=== PATIENT | male | born 1960 | race Caucasian/White ===

== ENCOUNTER 2019-12-10 23:25 | Emergency (ER) | payer OTHER, SELFPAY ==
--- NOTE | ~2019-12-10 | CT_ITS ---
EXAMINATION: CT abdomen pelvis w con DATE: 12/11/2019 00:37 INDICATION: Vomiting. Diarrhea. TECHNIQUE: Computed tomography (CT) of the abdomen and pelvis was performed with 100 mL Omnipaque 350 intravenous contrast. Automated exposure control and iterative reconstruction technique were employe d. The dose-length product was 555.78 mGy-cm. COMPARISON: CT abdomen and pelvis 07/31/2013 FINDINGS: The visualized portions of the lung bases demonstrate mild atelectasis. No pleural effusion . The heart size is normal. No pericardial effusion. There is a small sliding hiatal hernia. There is a 6 mm cyst in the liver. There are 8 mm and 12 mm low-attenuation lesions in the spleen inferiorly with interval decrease in size, likely granulomatous disease. The pancreas and adrenal glands are nor mal. There are cysts in the kidneys measuring up to 6 mm on the left. The prostate is moderately enla rged. There are no dilated loops of bowel. There are changes of appendectomy. There are no pathologic ally enlarged lymph nodes. There is no free intraperitoneal fluid. There are small bilateral inguinal hernias containing fat. There is mild lumbar spondylosis. IMPRESSION: 1. Small sliding hiatal hernia. 2. Small bilateral inguinal hernias containing fat. Reviewed, dictated and finalized at location A.
--- NOTE | ~2019-12-10 | CT_ITS ---
EXAMINATION: CT brain wo con DATE: 12/11/2019 00:37 INDICATION: Vertigo. TECHNIQUE: Computed tomography (CT) of the head was performed without intravenous contrast. The mA wa s adjusted according to patient size. Iterative reconstruction technique was employed. The dose-lengt h product was 605.33 mGy-cm. COMPARISON: None FINDINGS: There is no intracranial hemorrhage, acute infarction, or abnormal intracranial mass lesion . The ventricles are normal in size. Cavum septum pellucidum and vergae are noted. The paranasal sinu ses are clear. The orbits are normal. The mastoid air cells are normal. IMPRESSION: 1. Normal brain. Reviewed, dictated and finalized at location A. IMPRESSION: 1. Normal brain.
[2019-12-10 23:26] VITALS: BP 143/94; PULSE 56; RESP 16; TEMP 36.9; O2SAT 97
[2019-12-10 23:43] LABS: Basophils Absolute Auto 0.1 K/mm3 (0.0-0.1); Basophils Percent Auto 0.3 % (0.2-1.2); Hematocrit 48.7 % (42.0-52.0); Immature Granulocyte Absolute 0.08 K/mm3 (0.00-0.031); Immature Granulocyte Percent A 0.4 % (0-0.5); Lymphocytes Absolute Auto 1.22 K/mm3 (0.9-3.2); Lymphocytes Percent Auto 6.2 % (18.3-44.2); Mean Corpuscular HGB Conc 34.9 g/dl (32-36); Mean Corpuscular Hemoglobin 31.8 pg (26-34); Mean Corpuscular Volume 91.2 fl (80-100); Mean Platelet Volume 11.1 fl (7.4-10.4); Monocytes Absolute Auto 0.9 K/mm3 (0.1-0.6); Monocytes Percent Auto 4.8 % (2.6-8.5); Neutrophils Absolute Auto 17.5 K/mm3 (1.3-6.7); Neutrophils Percent Auto 88.3 % (45.5-73.1); Platelet Count Result 155 k/mm3 (150-375); Red Blood Count 5.34 M/mm3 (4.6-6.20); Red Cell Distribution Width 12.9 % (11.5-14.5); White Blood Count 19.8 K/mm3 (4.5-10.0)
--- NOTE | 2019-12-10 23:46 | ED.NAVMDI ---
HPI - Nausea/Vomiting/Diarrhea General Chief complaint: Nausea/Vomiting/Diarrhea Stated complaint: n/v/d Time Seen by Provider: 12/10/19 23:29 History of Present Illness HPI Narrative: Patient presents to the ED via EMS accompanied by his . He is here primarily for continual vomiting for 6 hours, and diarrhea today. Last night he had the feeling of nausea with any motion. He has had a history of migraine. His said he looked menjivar at home before she called the ambulance. He has a history of appendectomy and cholecystectomy. 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 He does not smoke cigarettes, does not drink alcohol, he does smoke marijuana. MD elicited complaint: nausea, vomiting, diarrhea and abdominal pain Pertinent past history: abdominal surgery Onset (ago): hour(s) Description of vomiting: food contents Associated nausea: Yes Associated abdominal pain: Yes Location of pain: diffuse Pain consistency: constant Severity: mild Exacerbating factors: none Relieving factors: none Related Data Home Medications Medication Instructions Recorded Confirmed omeprazole 40 mg PO DAILY 05/02/19 05/02/19 sumatriptan succinate 6 mg SUBCUT ONCE 12/10/19 Allergies Allergy/AdvReac Type Severity Reaction Status Date / Time morphine Allergy Intermediate RASH Verified 09/08/19 09:25 Penicillins Allergy Unknown Hives Verified 12/10/19 23:35 Review of Systems Review of Systems: Narrative: CONSTITUTIONAL: Denies fever, chills, or sweats. EYES: Denies visual changes, redness, or discharge. ENT: Denies rhinorrhea, congestion, sore throat, or otalgia. CARDIOVASCULAR: Denies chest pain, palpitations, or edema. RESPIRATORY: Denies cough or dyspnea. GASTROINTESTINAL: He has abdominal pain, nausea, vomiting, and diarrhea. GENITOURINARY: Denies dysuria or hematuria. SKIN: Denies rash or itching. MUSCULOSKELETAL: Denies back pain, joint pain, or myalgia. NEUROLOGIC: Denies headache, numbness, or weakness. . All systems reviewed & are unremarkable except as noted in HPI and below PMFSH Past Medical History Medical History History of migraine Surgical History Surgical History History of appendectomy History of cholecystectomy Family History Family History Father Hypertension Cerebrovascular accident Grandparent Cerebrovascular accident Family history of lung cancer No family history of cerebrovascular accident (CVA) Other Diabetes mellitus Social History Social History (Updated 12/10/19 @ 23:50 by Natalie Rosales MD) Smoking status: Former smoker Alcohol intake: never Substance use: current Substance use type: marijuana Gender identity (if verbalized by the patient): Male Exam Narrative: Exam Narrative: GENERAL: Sickly looking elderly man with a frown on his face. Poor eye contact. Speaks few words HEAD: Normocephalic, atraumatic. EYES: PERRLA and EOMI. ENT: Nares clear, no rhinorrhea or epistaxis. Mucous membranes moist. NECK: Supple. CHEST: Clear to auscultation. No respiratory distress. HEART: Regular rate and rhythm. No murmur heard. Normal peripheral pulses. ABDOMEN: Soft, nontender, nondistended, normal active bowel sounds. EXTREMITIES: Normal range of motion. No edema. SKIN: Warm, dry, no rash. NEURO: No focal deficits. Alert and oriented x3. . Course Reevaluation(s) Reevaluation #1: Went in to tell the patient and his that the CAT scans came out fine. He is feeling better and having some ice chips. We will give him another liter of fluid and see how much better he feels. Date: 12/11/19 Time: 01:45 Reevaluation #2: Second liter of fluid is done. The patient looks so much better. Now he is smiling. They are ready to go home. Date: 12/11/19 Time: 03:01 Vital Signs Vital signs: Vital Signs Temperature 98.4 F
[2019-12-10 23:52] LABS: Alanine Aminotransferase 17 U/L (4-50); Albumin Level 4.7 g/dL (3.5-5.1); Alkaline Phosphatase 97 U/L (38-126); Aspartate Amino Transferase 25 U/L (17-59); Bilirubin,Total 0.8 mg/dL (0.2-1.3); Blood Urea Nitrogen 21 mg/dL (9-20); Calcium 9.6 mg/dL (8.4-10.2); Carbon Dioxide 22 mmol/L (22-30); Chloride 100 mmol/L (98-107); Estimated CRCL calculation 64 ml/min; Estimated Glomerular Filt Rate > 60; Glucose 160 mg/dL (75-110); Lipase 53 U/L (23-300); Potassium 4.6 mmol/L (3.4-5.0); Sodium 134 mmol/L (137-145)
[2019-12-10] MEDS: METOCLOPRAMIDE HCL INJ 10 MG/2 ML VIAL IV PUSH (23:53)
[2019-12-10] MEDS: SODIUM CHLORIDE 0.9% IV 1,000 ML 999 ML IV CONT ×2 (23:57)
[2019-12-11] VITALS: BP 152/104; PULSE 64; RESP 12; O2SAT 100
[2019-12-11 01:00] VITALS: BP 134/84; PULSE 98; RESP 16; O2SAT 99
[2019-12-11 01:30] VITALS: BP 154/86; PULSE 81; RESP 16; O2SAT 100
[2019-12-11 01:41] LABS: Add Urine Microscopic? YES; Appearance Urine Clear (Clear); Bilirubin Urine Negative (Negative); Blood Urine Negative (Negative); Glucose Urine UA Negative (Negative); Ketones Urine 1+ mg/dL (Negative); Leukocyte Esterase Ur Negative LEU/UL (Negative); Mucus Urine Rare /lpf; Nitrate Urine Negative (Negative); Protein Urine Negative (Negative); RBC Urine 0-2 /hpf (0-2); Urobilinogen Urine Negative mg/dL (<2.0); WBC Urine 0-3 /hpf
[2019-12-11 01:49] LABS: Color Urine Light Yellow (Yellow); Specific Grav Ur 1.048 (1.001-1.035)
[2019-12-11] MEDS: SODIUM CHLORIDE 0.9% IV 1,000 ML 999 ML IV CONT (01:53)
[2019-12-11 02:00] VITALS: BP 151/84; PULSE 60; RESP 14; O2SAT 100
[2019-12-11 03:03] VITALS: BP 130/68; PULSE 68; RESP 16; O2SAT 100
== END 2019-12-11 03:27 | disposition home or self-care (01) ==
PROVIDERS: Emergency Provider Emergency Medicine; PCP Family Medicine
DX: K52.9 Noninfective gastroenteritis and colitis, unspecified (principal); R42 Dizziness and giddiness; D72.829 Elevated white blood cell count, unspecified; Z87.891 Personal history of nicotine dependence
CPT/HCPCS: 36415; 70450; 74177; 80053; 81001; 83690; 85025; 96361; 96374; 99284; J2765; J7030; Q9967

== ENCOUNTER 2020-02-02 00:34 | Outpatient (CLI) | payer OTHER, SELFPAY ==
[2020-02-03 13:40] LABS: SARS-CoV-2 RNA PCR Negative
== END 2020-02-02 00:35 | disposition home or self-care (01) ==
LOC: ANHCOVIDDT 00:34
PROVIDERS: PCP Family Medicine; Visit Provider Internal Medicine Gastroenterology
DX: Z01.812 Encounter for preprocedural laboratory examination (principal); Z20.828 Contact with and (suspected) exposure to other viral communicable diseases
CPT/HCPCS: 87635; C9803; U0003

== ENCOUNTER 2020-02-05 01:09 | Day surgery (SDC) | payer OTHER, SELFPAY ==
[2020-01-31 09:54] VITALS: BMI 27.1
[2020-02-05 06:31] VITALS: BMI 25.5
[2020-02-05 06:34] VITALS: BP 109/86; PULSE 108; RESP 24; TEMP 36.3; O2SAT 100
[2020-02-05] MEDS: LACTATED RINGERS 1,000 ML 150 ML IV CONT (06:42)
--- NOTE | 2020-02-05 07:13 | WPDANESEPPF ---
Anes - Initial Pre Proc Eval Procedure: Operation Date: 02/05/20 07:30 Proposed Procedures p Esophagogastroduodenoscopy - Hung Bowens MD Date/Time: 02/05/20 07:13 Surgeon: Hung Bowens MD Pre Op Diagnosis: reflux, esophageal obstruction Patient Data Age: 59 Gender: M Height: 6 ft Weight: 85.4 kg Last Vital Signs Temp 97.4 F L 02/05/20 06:34 Pulse 108 H 02/05/20 06:34 Resp 24 H 02/05/20 06:34 BP 109/86 02/05/20 06:34 Pulse Ox 100 02/05/20 06:34 Allergies Allergy/AdvReac Type Severity Reaction Status Date / Time morphine Allergy Intermediate RASH Verified 02/05/20 06:29 Penicillins Allergy Unknown Hives Verified 02/05/20 06:29 Home Medications Medication Instructions Recorded Confirmed Type propranolol 60 mg capsule,24 60 mg PO DAILY #90 cap 09/18/19 01/31/20 Rx hr,extended release clorazepate dipotassium 7.5 mg 7.5 mg PO QID PRN #120 tablet 11/15/19 01/31/20 Rx tablet sumatriptan succinate 6 mg SUBCUT ONCE PRN 12/10/19 01/31/20 History omeprazole 40 mg capsule,delayed 40 mg PO DAILY #90 cap 12/21/19 01/31/20 Rx release terbinafine HCl 250 mg tablet 250 mg PO DAILY #84 tablet 12/25/19 01/31/20 Rx rosuvastatin 20 mg tablet 20 mg PO DAILY #30 tablet 12/29/19 01/31/20 Rx duloxetine 60 mg capsule,delayed 60 mg PO DAILY #30 cap 01/17/20 01/31/20 Rx release trazodone 50 mg PO HS 01/31/20 01/31/20 History Patient hx anesthesia problems: none Family hx anesthesia problems: none PMFSH Social History Social History Smoking packs per day: 1 Smoking cigarettes per day: 20.0 Years smoked: 20 Smoking pack-years: 20.00 Smoking status: Former smoker Tobacco type: cigarettes Alcohol intake: never Substance use: never Substance use type: does not use Gender identity (if verbalized by the patient): Male Spiritual care concerns: No Anes - Eval Final PreProcedure Day of Procedure 02/05/20 07:13 Patient weight: normal Heart: regular rate and rhythm Lungs: clear to auscultation Airway: Mallampati scale class II Neurological: alert and oriented Last oral intake: >/= 8 hours ASA classification: III Emergent: no Anesthetic plan: proceed Anesthesia type and monitoring: general GIVS and standard monitoring Informed Consent: The patient's anesthetic plan and its attendant risks and benefits were discussed with the patient/family/POA. Questions were solicited and answers provided to the satisfaction of the patient/family/POA.
--- NOTE | 2020-02-05 07:15 | PM.HPGS ---
History of Present Illness History of Present Illness Consent: Risks, benefits, and alternatives have been discussed and questions answered. Patient agrees to proceed with procedure. Chief complaint: reflux, esophageal obstruction Narrative: Jayme Sterling Jr. is a 59 year old W male Referred for EGD for evaluation of sub xiphoid and epigastric abdominal pain associated with odynophagia and abdominal pressure. Patient has been on Prilosec 40 mg daily for least 5 years for chronic gastroesophageal reflux disease. He has never had an EGD in the past. Patient states he did have a colonoscopy several years ago by another examiner reportedly this was normal. Patient states this all be can December 10 when he had 24 hour episode of nausea vomiting and cyst this time has had persistent subxiphoid epigastric abdominal pain. He denies any hematemesis no melena no evidence GI bleed. He states that he had lost 13 lb since this time his appetite appears okay. Patient states he will have pain with swallowing both liquids and solids. Patient was seen in the emergency room on 12/[address] scan of the abdomen was fairly unremarkable except for small hiatal hernia and bilateral inguinal hernias. Patient has had a previous cholecystectomy and appendectomy. Patient denies any nonsteroidal inflammatory drugs. He is a 20 year pack history of smoking but quit 1997. Denies any significant alcohol exposure. [facility] Past Medical History Medical History Hiatal hernia History of migraine Leukocytosis Screening PSA (prostate specific antigen) Surgical History Surgical History (Updated 02/05/20 @ 07:19 by Hung Bowens MD) History of appendectomy History of cholecystectomy History of lumbar spinal fusion History of tonsillectomy and adenoidectomy Status post appendectomy Social History Social History Smoking packs per day: 1 Smoking cigarettes per day: 20.0 Years smoked: 20 Smoking pack-years: 20.00 Smoking status: Former smoker Tobacco type: cigarettes Alcohol intake: never Substance use: never Substance use type: does not use Gender identity (if verbalized by the patient): Male Spiritual care concerns: No Meds Home Medications and Allergies Home Medications Medication Instructions Recorded Confirmed Type propranolol 60 mg capsule,24 60 mg PO DAILY #90 cap 09/18/19 01/31/20 Rx hr,extended release clorazepate dipotassium 7.5 mg 7.5 mg PO QID PRN #120 tablet 11/15/19 01/31/20 Rx tablet sumatriptan succinate 6 mg SUBCUT ONCE PRN 12/10/19 01/31/20 History omeprazole 40 mg capsule,delayed 40 mg PO DAILY #90 cap 12/21/19 01/31/20 Rx release terbinafine HCl 250 mg tablet 250 mg PO DAILY #84 tablet 12/25/19 01/31/20 Rx rosuvastatin 20 mg tablet 20 mg PO DAILY #30 tablet 12/29/19 01/31/20 Rx duloxetine 60 mg capsule,delayed 60 mg PO DAILY #30 cap 01/17/20 01/31/20 Rx release trazodone 50 mg PO HS 01/31/20 01/31/20 History Allergies Allergy/AdvReac Type Severity Reaction Status Date / Time morphine Allergy Intermediate RASH Verified 02/05/20 06:29 Penicillins Allergy Unknown Hives Verified 02/05/20 06:29 Vital Signs Vital Signs - 24 hr 02/05/20 06:34 Temperature 36.3 C L Pulse Rate 108 H Respiratory Rate 24 H Blood Pressure 109/86 Pulse Oximetry 100 Exam Const: Orientation/consciousness: patient oriented x3 Resp: Auscultation: clear to auscultation bilaterally Cardio: Rate: regular rate Rhythm: regular rhythm Heart sounds: no murmurs GI: GI Palp: Yes Soft to palpation, No Tenderness to palpation present (GI), Yes No hepatosplenomegaly present and No Palpable mass present Auscultation: normal bowel sounds Neuro: General: patient oriented x3 and no focal motor deficits Extrem: General: no pedal edema Assessment and Plan Additional Plan EGD for evaluation of subxip
--- NOTE | 2020-02-05 07:49 | SUR.OPER ---
PATIENTS FRONT UPPER 4 TEETH FEEL OUT DURING PROCEDURE, SUNITA BURRIS WAS ABLE TO RETRIEVE DURING PROCEDURE. DR. PATINO AND DR. BROWN ARE AWARE, TEETH PLACED IN BIOHAZARD BAG AND WILL BE GIVEN TO PATIENT.
[2020-02-05 07:54] VITALS: BP 112/75; PULSE 88; RESP 20; O2SAT 100
[2020-02-05 08:04] VITALS: BP 117/82; PULSE 77; RESP 18; O2SAT 99
[2020-02-05 08:10] VITALS: BP 128/84; PULSE 72; RESP 18; O2SAT 99
--- NOTE | 2020-02-05 08:19 | SUR.PHASEII ---
0755 Patient awake and alert from anesthesia. Informed about his teeth falling out during the procedure. States Yeah, they were pretty loose before hand. Patient states this one in front here is loose too and proceeded to wiggle it. States I waited too long to get them checked. Instructed to call dentist office today, states I will. Patient given four teeth posts back in biohazard bag with the rest of his belongings.
== END 2020-02-05 08:25 | disposition home or self-care (01) ==
PROVIDERS: PCP Family Medicine; Visit Provider Internal Medicine Gastroenterology
PROC: 0DJ08ZZ Inspection of Upper Intestinal Tract, Via Natural or Artificial Opening Endoscopic (ICD-10-PCS; CPT 43235; principal; 2020-02-05 07:30)
DX: K21.0 Gastro-esophageal reflux disease with esophagitis (principal); K29.50 Unspecified chronic gastritis without bleeding; I10 Essential (primary) hypertension; E78.5 Hyperlipidemia, unspecified; Z87.891 Personal history of nicotine dependence; Z79.899 Other long term (current) drug therapy; Z88.0 Allergy status to penicillin; Z88.5 Allergy status to narcotic agent
CPT/HCPCS: 43239; 87635; 88305; C9803; J2704; J7120; U0003

== ENCOUNTER 2020-09-04 14:26 | Outpatient (CLI) | payer OTHER, SELFPAY | END 2020-09-04 14:27 | disposition home or self-care (01) | LOC: ANHCOVIDVC 14:26 | PROVIDERS: PCP Family Medicine | DX: Z23 Encounter for immunization (principal) | CPT/HCPCS: 0001A; 91300 ==

== ENCOUNTER 2020-09-25 14:11 | Outpatient (CLI) | payer OTHER, SELFPAY | END 2020-09-25 14:12 | disposition home or self-care (01) | LOC: ANHCOVIDVC 14:11 | PROVIDERS: PCP Family Medicine | DX: Z23 Encounter for immunization (principal) | CPT/HCPCS: 0002A; 91300 ==

== ENCOUNTER 2021-04-28 13:10 | Emergency (ER) | payer OTHER, SELFPAY ==
[2021-04-28 13:30] VITALS: BP 119/83; PULSE 97; RESP 18; TEMP 36.6; O2SAT 99
--- NOTE | 2021-04-28 14:29 | ED.NAVMDI ---
HPI - Nausea/Vomiting/Diarrhea General Chief complaint: Upper Respiratory Infection Stated complaint: abdominal pain,chills,diarrhea,headache Source: patient and RN notes reviewed Limitations: no limitations History of Present Illness HPI Narrative: The vaccinated patient, a non-smoker/nondrinker on several meds, presents with vomiting and diarrhea. Patient states he is had couple days, since the weekend, of nonbilious vomiting x4 to 6/day associated with diarrhea x3-4 daily. He reports he has had an appendectomy, cholecystectomy and normal colonoscopy in the past. No fever, blood; no loss of taste/smell, CP, S OB, but he does have LLQ and epigastric pain with the vomiting also Related Data Allergies Allergy/AdvReac Type Severity Reaction Status Date / Time morphine Allergy Intermediate RASH Verified 04/28/21 13:55 Penicillins Allergy Unknown Hives Verified 04/28/21 13:55 Review of Systems Review of Systems: General/Constitutional: No weight loss,fever Eyes: N0: Redness,discharge Ears/Nose/Throat: No: Epistaxis,ear discharge Respiratory: Denies: Hemoptysis Gastrointestinal: , Bleeding-rectal, REPORTS vomiting Skin: No Lumps, eruption Neurologic: No Focal Weakness,Sz Hematologic: Denies: Petechiae/Purpura Psychiatric: No: Suicida ideationl All Other Systems: Reviewed and Negative [facility] Past Medical History Medical History (Updated 04/29/21 @ 00:00 by Binu Brooks) BMI 25.0-25.9,adult BMI 26.0-26.9,adult Head pain Hiatal hernia History of migraine Leukocytosis Onychomycosis Screening for lipid disorders Screening PSA (prostate specific antigen) Surgical History Surgical History History of appendectomy History of cholecystectomy History of lumbar spinal fusion History of tonsillectomy and adenoidectomy Status post appendectomy Family History Family History Father Hypertension Cerebrovascular accident Grandparent Cerebrovascular accident Family history of lung cancer No family history of cerebrovascular accident (CVA) Other Diabetes mellitus Social History Social History (Updated 01/21/21 @ 09:17 by Rikki Pritchett) Smoking packs per day: 1 Smoking cigarettes per day: 20.0 Years smoked: 20 Smoking pack-years: 20.00 Smoking status: Former smoker Tobacco type: cigarettes Alcohol intake: never Substance use: never Substance use type: does not use Additional living arrangements comments: Additional occupation/education comments: 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 There is no relevant family history pertinent to the presenting complaint Exam Narrative: General Appearance: Mildly unwell appearing, No distress EYE: PERRLA, Conjunctiva clear Ears: External ear normal Nose: Normal nose Mouth/Throat: Normal appearing, Normal lips Neck: Supple Respiratory: Airway patent, No respiratory distress Cardiovascular: RRR Abdomen: Soft, tender LLQ > LUQ, No massess, No organomegaly (no rebound/ surgical signs), Hyperactive bowel sounds Musculoskeletal: Full ROM Skin: Warm, Dry Neurological: A&O x3, CN II-X intact Psychiatric: Normal mood, Normal affect Course Vital Signs Vital signs: Vital Signs Temperature 97.8 F 04/28/21 13:30 Pulse Rate 97 04/28/21 13:30 Respiratory Rate 18 04/28/21 13:30 Blood Pressure 119/83 04/28/21 13:30 Pulse Oximetry 99 04/28/21 13:30 Temperature 97.8 F 04/28/21 13:30 Pulse Rate 97 04/28/21 13:30 Respiratory Rate 18 04/28/21 13:30 Blood Pressure 119/83 04/28/21 13:30 Pulse Oximetry 9
[2021-04-28] MEDS: ONDANSETRON HCL ODT 4 MG TABLET PO (14:33)
[2021-04-29 20:27] LABS: SARS-CoV-2 RNA PCR Negative
== END 2021-04-28 14:35 | disposition short-term general hospital (02) ==
PROVIDERS: Emergency Provider Emergency Medicine; PCP Family Medicine
DX: R11.10 Vomiting, unspecified (principal); R19.7 Diarrhea, unspecified; R10.9 Unspecified abdominal pain; Z87.891 Personal history of nicotine dependence; Z20.822 Contact with and (suspected) exposure to COVID-19
CPT/HCPCS: 87426; 87804; 99213; A9270; C9803; G0463; U0003; U0005

== ENCOUNTER 2021-04-28 15:02 | Emergency (ER) | payer OTHER, SELFPAY ==
[2021-04-28] VITALS (8 sets, daily range): BP systolic 119–143; BP diastolic 80–89; PULSE 70–92; RESP 12–16; TEMP 36.7–36.9; O2SAT 98–100
--- NOTE | ~2021-04-28 | XR_ITS ---
EXAMINATION: XR chest 2V EXAM DATE: 04/28/2021 18:59 INDICATION: Medial chest pain nausea vomiting diarrhea. History hiatal hernia. TECHNIQUE: Frontal and lateral projections of the chest obtained and reviewed. Comparison is made to prior examination from 12/15/2018. FINDINGS: The lungs are hyperinflated which can be seen with chronic obstructive pulmonary disease ( a clinical diagnosis of functional impairment), but is not diagnostic of it. The lungs are clear. Th ere are no pleural effusions. The cardiomediastinal silhouette is within normal limits. There is no pneumothorax suspected. The bones and soft tissues are unremarkable. There are cholecystectomy cl ips. IMPRESSION: 1. No acute cardiopulmonary findings. 2. Hyperinflation. Reviewed, dictated and finalized at location A. 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
--- NOTE | ~2021-04-28 | CT_ITS ---
EXAMINATION: CT abdomen pelvis w con EXAM DATE: 04/28/2021 20:00 INDICATION: Abd pain, vomiting. Nausea, diarrhea. TECHNIQUE: Spiral CT of the abdomen and pelvis was performed following intravenous injection of 100 m L Omnipaque 350. Axial, coronal and sagittal images of the abdomen and pelvis were reviewed. The do se-length product (DLP) for this examination was 376.01 mGy-cm. The exposure was tailored according to patient size (auto mA exposure control), and iterative reconstruction (ASIR) was used as additiona l dose reduction technique. There is no prior study for comparison. FINDINGS: Adrenal gland hyperplasia. There is hepatic steatosis without suspicious focal lesion ident ified. Small splenic hypodensity measuring 1.1 cm (was 7 mm in 2019 and 3.8 cm in 2013), probably o ld granulomatous process. There are cholecystectomy clips. Portal and splenic veins are patent. Kid neys enhance symmetrically. There is no hydronephrosis. Small renal cysts, hypodensities too small t o characterize but probably cysts. There is mild prostatomegaly. The bladder is unremarkable. There is no retroperitoneal or pelvic lymphadenopathy. Small bilateral inguinal fat-containing hernias. Small umbilical fat-containing hernia. Couple of pelvic regions chronic fat necrosis. Probable appendectomy. Small duodenal diverticulum. Ascending colonic fluid, remainder of colon jus t has small amount of gas. No colonic wall thickening to suggest colitis. No free intraperitoneal gas . The heart is normal in size. There are no pericardial or pleural effusions. The lung bases are unremarkable. There are no osteoblastic or osteolytic lesions identified. IMPRESSION: 1. Ascending colonic fluid, correlate for possible gastroenteritis. 2. Small umbilical, inguinal hernias. 3. Other chronic findings. Reviewed, dictated and finalized at location A. 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
--- NOTE | 2021-04-28 18:49 | ED.NAVMDI ---
HPI - Nausea/Vomiting/Diarrhea General Chief complaint: Nausea/Vomiting/Diarrhea Stated complaint: ABD pain Time Seen by Provider: 04/28/21 18:40 Source: patient Mode of arrival: ambulatory Limitations: no limitations History of Present Illness HPI Narrative: This is a 60-year-old male presents the emergency department for nausea, vomiting and diarrhea. Associated with chills and left lower quadrant abdominal pain. Also reports a dull achy chest pain. Denies fever, cough, shortness of breath, lower extremity edema, or hematochezia. Related Data Allergies Allergy/AdvReac Type Severity Reaction Status Date / Time morphine Allergy Intermediate RASH Verified 04/28/21 13:55 Penicillins Allergy Unknown Hives Verified 04/28/21 13:55 Review of Systems Review of Systems: CONSTITUTIONAL: Denies fever CARDIOVASCULAR: Reports chest pain RESPIRATORY: Denies dyspnea. GASTROINTESTINAL: Reports abdominal pain, nausea, vomiting, and diarrhea. GENITOURINARY: Denies dysuria or hematuria. All systems reviewed & are unremarkable except as noted in HPI and below PMFSH Past Medical History Medical History (Updated 04/28/21 @ 21:27 by Renae Willoughby PA-C) BMI 25.0-25.9,adult BMI 26.0-26.9,adult Head pain Hiatal hernia History of migraine Leukocytosis Onychomycosis Screening for lipid disorders Screening PSA (prostate specific antigen) Surgical History Surgical History History of appendectomy History of cholecystectomy History of lumbar spinal fusion History of tonsillectomy and adenoidectomy Status post appendectomy Family History Family History Father Hypertension Cerebrovascular accident Grandparent Cerebrovascular accident Family history of lung cancer No family history of cerebrovascular accident (CVA) Other Diabetes mellitus Social History Social History (Updated 01/21/21 @ 09:17 by Rikki Pritchett) Smoking packs per day: 1 Smoking cigarettes per day: 20.0 Years smoked: 20 Smoking pack-years: 20.00 Smoking status: Former smoker Tobacco type: cigarettes Alcohol intake: never Substance use: never Substance use type: does not use Additional living arrangements comments: 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 HEAD: Normocephalic, atraumatic. EYES: EOMI. ENT: Mucous membranes moist. Oropharynx without tonsillar hypertrophy exudate or other lesions. CHEST: Clear to auscultation. No respiratory distress. No wheezes rales or rhonchi HEART: Regular rate and rhythm. No murmur heard. Normal peripheral pulses. ABDOMEN: Soft, nondistended, normal active bowel sounds. Tender to palpation in the left lower quadrant, without guarding. No CVA tenderness EXTREMITIES: Normal range of motion. No edema. SKIN: Warm, dry, no rash. NEURO: No focal deficits. Alert and oriented x3. PSYCH: Normal mood and affect Course Vital Signs Vital signs: Vital Signs Temperature 98.1 F 04/28/21 15:12 Pulse Rate 92 04/28/21 15:12 Respiratory Rate 16 04/28/21 15:12 Blood Pressure 130/85 04/28/21 15:12 Pulse Oximetry 98 04/28/21 15:12 Temperature 98.5 F 04/28/21 19:30 Pulse Rate 81 04/28/21 20:59 Respiratory Rate 12 04/28/21 20:59 Blood Pressure 120/80 04/28/21 20:59 Pulse Oximetry 100 04/28/21 20:59 MDM - Nausea/Vomiting/Diarrhea MDM Narrative Medical decision making narrative: Patient presents to the emergency department for abdominal pain, nausea and vomiting. Present over the last couple of days. Also reporting chest pain worse with c
--- NOTE | 2021-04-28 18:50 | ECG_ITS ---
Measurements Intervals [place] Rate: 70 P: 24 OK: 128 QRS: 22 QRSD: 94 T: 41 QT: 372 QTc: 403 Interpretive Statements SINUS RHYTHM FREQUENT ATRIAL PREMATURE COMPLEXES ABNORMAL ECG Electronically Signed On 04-28-2021 20:10:26 [employer] by Navneet Roman D.O.
[2021-04-28 19:15] LABS: Basophils Percent Auto 0.2 % (0.2-1.2); Hematocrit 43.1 % (42.0-52.0); Hemoglobin 15.3 g/dL (14.0-18.0); Immature Granulocyte Absolute 0.02 K/mm3 (0.00-0.031); Immature Granulocyte Percent A 0.2 % (0-0.5); Lymphocytes Absolute Auto 0.44 K/mm3 (0.9-3.2); Lymphocytes Percent Auto 5.1 % (18.3-44.2); Mean Corpuscular HGB Conc 35.5 g/dl (32-36); Mean Corpuscular Hemoglobin 34.2 pg (26-34); Mean Corpuscular Volume 96.4 fl (80-100); Mean Platelet Volume 10.2 fl (7.4-10.4); Monocytes Absolute Auto 0.5 K/mm3 (0.1-0.6); Monocytes Percent Auto 5.3 % (2.6-8.5); Neutrophils Absolute Auto 7.6 K/mm3 (1.3-6.7); Neutrophils Percent Auto 89.2 % (45.5-73.1); Platelet Count Result 125 k/mm3 (150-375); Red Blood Count 4.47 M/mm3 (4.6-6.20); Red Cell Distribution Width 13.3 % (11.5-14.5); White Blood Count 8.6 K/mm3 (4.5-10.0)
[2021-04-28 19:25] LABS: INR 0.9; Partial Thromboplastin Time 24.6 SECONDS (22.3-36.8); Prothrombin Time 12.4 Seconds (11.1-14.7)
[2021-04-28 19:29] LABS: Alanine Aminotransferase 20 U/L (4-50); Albumin Level 4.3 g/dL (3.5-5.1); Alkaline Phosphatase 57 U/L (38-126); Anion Gap 9 mmol/L (8-16); Aspartate Amino Transferase 33 U/L (17-59); Bilirubin,Total 0.5 mg/dL (0.2-1.3); Blood Urea Nitrogen 20 mg/dL (9-20); Calcium 9.2 mg/dL (8.4-10.2); Carbon Dioxide 30 mmol/L (22-30); Chloride 97 mmol/L (98-107); Estimated CRCL calculation 69 ml/min; Estimated Glomerular Filt Rate > 60; Glucose 96 mg/dL (65-110); Lipase 34 U/L (23-300); Potassium 3.2 mmol/L (3.4-5.0); Sodium 136 mmol/L (137-145)
[2021-04-28] MEDS: ONDANSETRON INJ 4 MG/2 ML VIAL IV PUSH (19:36)
[2021-04-28] MEDS: SODIUM CHLORIDE 0.9% IV 1,000 ML 999 ML IV CONT (19:36)
[2021-04-28] MEDS: PANTOPRAZOLE SODIUM IV 40 MG VIAL IV PUSH (19:36)
[2021-04-28] MEDS: POTASSIUM CHLORIDE 20 MEQ TABLET 40 MEQ PO (20:57)
[2021-04-28 21:18] LABS: Troponin I < 0.012 ng/mL (0.000-0.034)
[2021-04-28 21:59] LABS: Add Urine Microscopic? YES; Appearance Urine Clear (Clear); Bacteria Urine Trace /hpf; Bilirubin Urine Negative (Negative); Blood Urine Negative (Negative); Color Urine Yellow (Yellow); Glucose Urine UA Negative (Negative); Ketones Urine Trace mg/dL (Negative); Leukocyte Esterase Ur Negative LEU/UL (Negative); Mucus Urine Moderate /lpf; Nitrate Urine Negative (Negative); Protein Urine Negative (Negative); Urobilinogen Urine Negative mg/dL (<2.0); WBC Urine 0-3 /hpf
[2021-04-28 22:00] LABS: Specific Grav Ur > 1.060 (1.001-1.035)
== END 2021-04-28 22:18 | disposition home or self-care (01) ==
PROVIDERS: Physician Assistant; Emergency Provider Family Medicine; PCP Family Medicine
DX: K52.9 Noninfective gastroenteritis and colitis, unspecified (principal); E87.6 Hypokalemia; Z87.891 Personal history of nicotine dependence; I49.1 Atrial premature depolarization
CPT/HCPCS: 36415; 71046; 74177; 80053; 81001; 83690; 84484; 85025; 85610; 85730; 93005; 96361; 96365; 96375; 99284; A9270; C9113; J0131; J2405; J7030; Q9967

== ENCOUNTER 2022-04-14 15:25 | Emergency (ER) | payer OTHER, SELFPAY ==
--- NOTE | ~2022-04-14 | XR_ITS ---
EXAM: XR foot RT min 3V DATE: 04/14/2022 16:19 HISTORY: [id number] ago hit foot on dresser/pain 5th to metatarsal . COMPARISON: None available. FINDINGS: Osteopenia. Nondisplaced, transverse, extra-articular fracture of the proximal aspect of t he right fifth proximal phalange. No lytic or blastic lesion. Mild degenerative change at the first M TP. Achilles and plantar enthesopathy. No erosion or periosteal change. Soft tissues within normal li mits. IMPRESSION: Nondisplaced, transverse, extra-articular fracture of the proximal aspect of the right fi fth proximal phalange. Reviewed, dictated and finalized at location K. GER PAYMENT IMPRESSION: Nondisplaced, transverse, extra-articular fracture of the proximal aspect of the right fifth proximal phalange.
[2022-04-14 16:06] VITALS: BP 117/67; PULSE 80; RESP 18; TEMP 36.6; O2SAT 98
--- NOTE | 2022-04-14 16:54 | ED.LOWEXIN ---
HPI - Extremity Injury (Lower) General Chief Complaint: Extremity Injury, Lower Stated Complaint: toe injury Time Seen by Provider: 04/14/22 16:54 Source: patient Mode of arrival: ambulatory Limitations: no limitations History of Present Illness HPI Narrative: 61-year-old male presents with complaint of pain to right 5th toe. States approximately 1 week ago he hit her toe on a dresser. States that swelling and bruising not improving, was concern for fracture. Distal neurovascular intact. Range of motion decreased due to pain. Ambulatory with slight limp. All systems reviewed and negative except as noted above. Related Data Allergies Allergy/AdvReac Type Severity Reaction Status Date / Time morphine Allergy Intermediate RASH Verified 04/14/22 16:44 Penicillins Allergy Unknown Hives Verified 04/14/22 16:44 cefdinir Allergy Rash Verified 04/14/22 16:44 Review of Systems Review of Systems: CONSTITUTIONAL: Denies fever, chills, or sweats. EYES: Denies visual changes, redness, or discharge. ENT: Denies rhinorrhea, congestion, sore throat, or otalgia. CARDIOVASCULAR: Denies chest pain, palpitations, or edema. RESPIRATORY: Denies cough or dyspnea. GASTROINTESTINAL: Denies abdominal pain, nausea, vomiting, or diarrhea. GENITOURINARY: Denies dysuria or hematuria. SKIN: Denies rash or itching. MUSCULOSKELETAL: Denies back pain, joint pain, or myalgia. Reports pain and swelling to right 5th toe. NEUROLOGIC: Denies headache, numbness, or weakness. PSYCHIATRIC: Denies anxiety or depression. All other systems reviewed are negative, except as documented in HPI. [facility] Past Medical History Medical History (Updated 04/14/22 @ 17:00 by Antonina Duran NP) BMI 25.0-25.9,adult BMI 26.0-26.9,adult Head pain Hiatal hernia History of migraine Leukocytosis Onychomycosis Otitis media Screening for lipid disorders Screening PSA (prostate specific antigen) Upper back pain Surgical History Surgical History History of appendectomy History of cholecystectomy History of lumbar spinal fusion History of tonsillectomy and adenoidectomy Status post appendectomy Family History Family History Father Hypertension Cerebrovascular accident Grandparent Cerebrovascular accident Family history of lung cancer No family history of cerebrovascular accident (CVA) Other Diabetes mellitus Social History Social History Smoking packs per day: 1 Smoking cigarettes per day: 20.0 Years smoked: 20 Smoking pack-years: 20.00 Smoking status: Former smoker Tobacco type: cigarettes Alcohol intake: never Substance use: never Substance use type: does not use Additional living arrangements comments: Additional occupation/education comments: 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 There is no relevant family history pertinent to the presenting complaint. Exam Narrative: GENERAL: This is a well-nourished, well-developed patient, in no apparent distress. HEAD: normocephalic, atraumatic. EYES: PERRL. Sclera clear/white. Vision is grossly intact. EARS: External ears normal NOSE: External nose normal NECK: Neck supple, non-tender without lymphadenopathy, masses or thyromegaly. CARDIOVASCULAR: Regular rate and rhythm without murmurs, gallops, or rubs. RESPIRATORY: Clear to auscultation. Breath sounds equal bilaterally. No wheezes, rales, or rhonchi. SKIN: warm, Dry, intact with no suspicious lesions or rash, good texture and turgor. NEURO: awake, alert, and pamella
== END 2022-04-14 17:16 | disposition home or self-care (01) ==
PROVIDERS: Emergency Provider Nurse Practitioner Family; PCP Family Medicine
DX: S92.514A Nondisplaced fracture of proximal phalanx of right lesser toe(s), initial encounter for closed fracture (principal); Z87.891 Personal history of nicotine dependence; W22.03XA Walked into furniture, initial encounter
CPT/HCPCS: 73630; 99214; G0463

== ENCOUNTER 2022-06-19 14:37 | Outpatient (CLI) | payer OTHER, SELFPAY ==
--- NOTE | ~2022-06-19 | XR_ITS ---
EXAMINATION: XR foot RT standing 2V DATE: 06/19/2022 14:57 INDICATION: Nondisplaced fracture of the right fifth proximal phalanx TECHNIQUE: Dorsoplantar and lateral views of the right foot were obtained. COMPARISON: None. FINDINGS: Small amount of nonbridging callus along the lateral side of a minimally displaced extra articular fr acture across the proximal metaphysis of the right fifth proximal phalanx. No new fractures identifie d. Mild osteoarthritis at the metatarsophalangeal and a few of the interphalangeal joints. Small plan tar calcaneal spur. Soft tissues are unremarkable with no right ankle joint effusion. IMPRESSION: 1. Healing still ununited minimally displaced extra articular fracture at the base of the right fifth proximal phalanx. Reviewed, dictated and finalized at location B. [employer] IMPRESSION: 1. Healing still ununited minimally displaced extra articular fracture at the b ase of the right fifth proximal phalanx.
== END 2022-06-19 14:38 ==
LOC: MICIMG 14:39
PROVIDERS: PCP Family Medicine; Visit Provider Family Medicine
DX: S92.514A Nondisplaced fracture of proximal phalanx of right lesser toe(s), initial encounter for closed fracture (principal); X58.XXXA Exposure to other specified factors, initial encounter
CPT/HCPCS: 73620

== ENCOUNTER 2022-08-14 00:37 | Day surgery (SDC) | payer OTHER, SELFPAY ==
[2022-07-28 14:47] VITALS: BMI 26.4
--- NOTE | 2022-08-14 08:03 | WPDANESEPPF ---
Anes - Initial Pre Proc Eval Procedure: Operation Date: 08/14/22 11:30 Proposed Procedures p Screening Colonoscopy - Ricci Romo MD Date/Time: 08/14/22 08:03 Surgeon: Ricci Romo MD Pre Op Diagnosis: neoplasm screening Patient Data Age: 61 Gender: M Height: 1.83 m Weight: 88.6 kg Allergies Allergy/AdvReac Type Severity Reaction Status Date / Time morphine Allergy Intermediate RASH Verified 08/14/22 10:48 Penicillins Allergy Unknown Hives Verified 08/14/22 10:48 cefdinir Allergy Rash Verified 08/14/22 10:48 Home Medications Medication Instructions Recorded Confirmed Type trazodone 50 mg tablet 50 mg PO HS #90 tabs 04/23/22 08/14/22 Rx duloxetine 60 mg capsule,delayed 60 mg PO DAILY #30 caps 06/22/22 08/14/22 Rx release omeprazole 40 mg capsule,delayed See Rx Instructions .Route 07/09/22 08/14/22 Rx release .COMPLEX #90 caps clorazepate dipotassium 7.5 mg 7.5 mg PO QID PRN anxiety #120 tabs 08/07/22 08/14/22 Rx tablet propranolol 60 mg capsule,24 60 mg PO DAILY #90 caps 08/21/22 Rx hr,extended release Patient hx anesthesia problems: none Family hx anesthesia problems: none Results Review: All pre-operative results and documents have been reviewed as part of the pre-operative evaluation. [facility] Past Medical History Medical History BMI 25.0-25.9,adult BMI 26.0-26.9,adult Fracture of 5th metatarsal Head pain Hiatal hernia History of migraine Hyperlipidemia Hypertension Leukocytosis Onychomycosis Otitis media Screening for lipid disorders Screening PSA (prostate specific antigen) Upper back pain Surgical History Surgical History History of appendectomy History of cholecystectomy History of lumbar spinal fusion History of tonsillectomy and adenoidectomy Status post appendectomy Family History Family History Father Hypertension Cerebrovascular accident Grandparent Cerebrovascular accident Family history of lung cancer No family history of cerebrovascular accident (CVA) Other Diabetes mellitus Social History Social History Smoking packs per day: 1.5 Smoking cigarettes per day: 30.0 Years smoked: 20 Smoking pack-years: 30.00 Smoking status: Former smoker Tobacco type: cigarettes Alcohol intake: never Alcohol use details: VERY RARELY Substance use: current Substance use type: marijuana Last use: 07/22/22 Lack of Transportation: No Lack of Food: Never True Current Housing: I Have Housing Concerned About Future Housing: No Difficulty Paying Gas/Electric Bills: No Difficulty Paying for Meds: No Currently Unemployed: No Education: Associate Degree Difficulty w/ Childcare or Family Care: No Living arrangements: with family Additional living arrangements comments: Occupation/Education: occupation Additional occupation/education comments: 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, 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 [employer] Gender identity (if verbalized by the patient): Male Sexual Orientation (if Verbalized by the Patient): Straight or Heterosexual Spiritual care concerns: No Agree to blood products: Yes Anes - Eval Final PreProcedure Day of Procedure 08/14/22 08:03 Patient weight: overweight Heart: regular rate and rhythm Lungs: clear to auscultation Airway: Mallampati scale class II Neurological: alert and oriented Last oral intake: >/= 8 hours ASA classification: III Emergent: no Anesthetic plan: proceed Anesthesia type and monitoring: general GIVS and standard monitoring Results Review: All pre-operative results and documents have been reviewed as part of the pre-operative evaluation. Informed Consent: The patient's anesthetic plan and its attendant risks and benefits were discussed with the patient/family/POA. Qu
[2022-08-14 10:50] VITALS: BP 145/86; PULSE 68; RESP 16; TEMP 36.3; O2SAT 98
[2022-08-14] MEDS: LACTATED RINGERS 1,000 ML 150 ML IV CONT (10:59)
--- NOTE | 2022-08-14 11:14 | PM.HPGS ---
History of Present Illness History of Present Illness Consent: Risks, benefits, and alternatives have been discussed and questions answered. Patient agrees to proceed with procedure. Chief complaint: neoplasm screening Narrative: Jayme Streling Jr. is a 61 year old male Referred for colon cancer screening. His last colonoscopy was 10 years ago. Review of Systems Review of Systems: All systems reviewed & are unremarkable except as noted in HPI and below PMFSH Past Medical History Medical History BMI 25.0-25.9,adult BMI 26.0-26.9,adult Fracture of 5th metatarsal Head pain Hiatal hernia History of migraine Hyperlipidemia Hypertension Leukocytosis Onychomycosis Otitis media Screening for lipid disorders Screening PSA (prostate specific antigen) Upper back pain Surgical History Surgical History History of appendectomy History of cholecystectomy History of lumbar spinal fusion History of tonsillectomy and adenoidectomy Status post appendectomy Family History Family History Father Hypertension Cerebrovascular accident Grandparent Cerebrovascular accident Family history of lung cancer No family history of cerebrovascular accident (CVA) Other Diabetes mellitus Social History Social History Smoking packs per day: 1.5 Smoking cigarettes per day: 30.0 Years smoked: 20 Smoking pack-years: 30.00 Smoking status: Former smoker Tobacco type: cigarettes Alcohol intake: never Alcohol use details: VERY RARELY Substance use: current Substance use type: marijuana Last use: 07/22/22 Lack of Transportation: No Lack of Food: Never True Current Housing: I Have Housing Concerned About Future Housing: No Difficulty Paying Gas/Electric Bills: No Difficulty Paying for Meds: No Currently Unemployed: No Education: Associate Degree Difficulty w/ Childcare or Family Care: No Living arrangements: with family Additional living arrangements comments: Occupation/Education: occupation Additional occupation/education comments: 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, 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] Gender identity (if verbalized by the patient): Male Sexual Orientation (if Verbalized by the Patient): Straight or Heterosexual Spiritual care concerns: No Agree to blood products: Yes Meds Home Medications and Allergies Home Medications Medication Instructions Recorded Confirmed Type propranolol 60 mg capsule,24 60 mg PO DAILY #90 caps 02/22/22 08/14/22 Rx hr,extended release trazodone 50 mg tablet 50 mg PO HS #90 tabs 04/23/22 08/14/22 Rx duloxetine 60 mg capsule,delayed 60 mg PO DAILY #30 caps 06/22/22 08/14/22 Rx release omeprazole 40 mg capsule,delayed See Rx Instructions .Route 07/09/22 08/14/22 Rx release .COMPLEX #90 caps clorazepate dipotassium 7.5 mg 7.5 mg PO QID PRN anxiety #120 tabs 08/07/22 08/14/22 Rx tablet Allergies Allergy/AdvReac Type Severity Reaction Status Date / Time morphine Allergy Intermediate RASH Verified 08/14/22 10:48 Penicillins Allergy Unknown Hives Verified 08/14/22 10:48 cefdinir Allergy Rash Verified 08/14/22 10:48 Vital Signs Vital Signs - 24 hr 08/14/22 10:50 Temperature 36.3 C L Pulse Rate 68 Respiratory Rate 16 Blood Pressure 145/86 H Pulse Oximetry 98 Oxygen Delivery Room Air Exam Const: General: alert Orientation/consciousness: patient oriented x3 Resp: Auscultation: clear to auscultation bilaterally Cardio: Rhythm: regular rhythm GI: GI Palp: Yes Soft to palpation and No Tenderness to palpation present (GI) Neuro: General: patient oriented x3 Assessment and Plan Assessment and plan (1) Colon cancer screening: Code(s): Z12.11 - Encounter for screening for malignant neoplasm of colon
[2022-08-14 11:37] VITALS: BP 143/90; PULSE 58; RESP 19; O2SAT 100
[2022-08-14 11:47] VITALS: BP 149/81; PULSE 56; RESP 16; O2SAT 100
[2022-08-14 11:57] VITALS: BP 147/82; PULSE 57; RESP 17; O2SAT 100
== END 2022-08-14 12:06 | disposition home or self-care (01) ==
PROVIDERS: PCP Family Medicine; Visit Provider Internal Medicine Gastroenterology
PROC: 0DJD8ZZ Inspection of Lower Intestinal Tract, Via Natural or Artificial Opening Endoscopic (ICD-10-PCS; CPT 45378; principal; 2022-08-14 11:30)
DX: Z12.11 Encounter for screening for malignant neoplasm of colon (principal); D12.5 Benign neoplasm of sigmoid colon; K52.831 Collagenous colitis; I10 Essential (primary) hypertension; Z98.1 Arthrodesis status; Z87.891 Personal history of nicotine dependence; F12.90 Cannabis use, unspecified, uncomplicated
CPT/HCPCS: 45385; 45380; 88305; J2704; J7120

== ENCOUNTER 2023-01-15 08:17 | Emergency (ER) | payer OTHER, SELFPAY ==
--- NOTE | 2023-01-15 08:19 | ED.WOUNDLAC ---
HPI - Wound/Laceration General Chief Complaint: Wound/Laceration Stated Complaint: Cut Thumb Rt Hand Time Seen by Provider: 01/15/23 08:18 Source: patient, RN notes reviewed and old records reviewed Mode of arrival: ambulatory Limitations: no limitations History of Present Illness HPI narrative: 62-year-old male presents to the [facility] with complaints of a laceration to the base of the right thumb. Sensation intact. Bleeding is controlled. Full range of motion. Unknown last tetanus Capillary refill under 2 seconds Patient is right-hand dominant Treatments prior to arrival: bandage Related Data Allergies Allergy/AdvReac Type Severity Reaction Status Date / Time cefdinir AdvReac Mild Rash Verified 01/15/23 08:24 morphine AdvReac Mild RASH Verified 01/15/23 08:24 Penicillins AdvReac Mild Hives Verified 01/15/23 08:24 Review of Systems Review of Systems: All systems reviewed & are unremarkable except as noted in HPI and below Constitutional: Constitutional: Reports no additional constitutional complaints Eyes: Eyes: Reports no additional eye complaints ENT: Reports system reviewed and no additional complaints, except as documented Cardiovascular: Cardiovascular: Reports no additional cardiovascular complaints, Denies chest pain and Denies dyspnea Respiratory: Respiratory: Reports no additional respiratory complaints, Denies chest congestion, Denies cough and Denies dyspnea Gastrointestinal: Gastrointestinal: Reports no additional gastrointestinal complaints, Denies abdominal pain, Denies nausea and Denies vomiting Musculoskeletal: Musculoskeletal: Reports no additional musculoskeletal complaints Integumentary/Breasts: Skin/Breast: Reports as per HPI Neurologic: Reports system reviewed and no additional complaints, except as documented Psychiatric: Psychiatric: Reports no additional psychiatric complaints Allergic/Immunologic: Allergic/Immunologic: Reports no additional allergic/immunologic complaints [facility] Past Medical History Medical History BMI 25.0-25.9,adult BMI 26.0-26.9,adult Fracture of 5th metatarsal Head pain Hiatal hernia History of migraine Hyperlipidemia Hypertension Leukocytosis Onychomycosis Otitis media Screening for lipid disorders Screening PSA (prostate specific antigen) Upper back pain Surgical History Surgical History History of appendectomy History of cholecystectomy History of lumbar spinal fusion History of tonsillectomy and adenoidectomy Status post appendectomy Family History Family History Father Hypertension Cerebrovascular accident Grandparent Cerebrovascular accident Family history of lung cancer No family history of cerebrovascular accident (CVA) Other Diabetes mellitus Social History Social History Smoking packs per day: 1.5 Smoking cigarettes per day: 30.0 Years smoked: 20 Smoking pack-years: 30.00 Smoking status: Former smoker Tobacco type: cigarettes Alcohol intake: never Alcohol use details: VERY RARELY Substance use: current Substance use type: marijuana Last use: 07/22/22 Lack of Transportation: No Lack of Food: Never True Current Housing: I Have Housing Concerned About Future Housing: No Difficulty Paying Gas/Electric Bills: No Difficulty Paying for Meds: No Currently Unemployed: No Education: Associate Degree Difficulty w/ Childcare or Family Care: No Living arrangements: with family Additional living arrangements comments: Occupation/Education: occupation Additional occupation/education comments: 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
[2023-01-15 08:32] VITALS: BP 110/77; PULSE 70; RESP 16; TEMP 36.2; O2SAT 100
[2023-01-15] MEDS: TETANUS,DIPHTHERIA,AC PERTUSSIS ADULT (0.5 ML) BOOSTRIX IM (08:39)
== END 2023-01-15 09:26 | disposition home or self-care (01) ==
PROVIDERS: Emergency Provider Nurse Practitioner; PCP Family Medicine
DX: S61.011A Laceration without foreign body of right thumb without damage to nail, initial encounter (principal); X58.XXXA Exposure to other specified factors, initial encounter; Z23 Encounter for immunization; Z87.891 Personal history of nicotine dependence; F12.90 Cannabis use, unspecified, uncomplicated; E78.5 Hyperlipidemia, unspecified; I10 Essential (primary) hypertension
CPT/HCPCS: 12002; 90471; 90715; 99213; G0463

== ENCOUNTER 2023-09-22 09:58 | Emergency (ER) | payer OTHER, SELFPAY ==
[2023-09-22 10:23] VITALS: BP 119/78; PULSE 57; RESP 16; TEMP 36.4; O2SAT 100
--- NOTE | 2023-09-22 10:36 | ED.GENADULT ---
HPI - General Adult General Chief complaint: Abdominal Pain Stated complaint: abdominal Pain Time Seen by Provider: 09/22/23 10:36 Source: patient Mode of arrival: ambulatory Limitations: no limitations History of Present Illness HPI narrative: 62-year-old male presents with complaint of upset stomach, mild nausea while at work today. Patient states his symptoms are most likely due to taking naproxen on an empty stomach. Patient states that naproxen is a new medication for him for hamstring strain. Patient states after leaving work he had a small snack and symptoms are improving. A 3-4 days ago he slipped in a garage and hyper extended right leg. Called his primary care physician regarding pain to right hamstring and was prescribed naproxen. Patient ambulatory with limp. All systems reviewed and negative except as noted above. Related Data Allergies Allergy/AdvReac Type Severity Reaction Status Date / Time cefdinir Allergy Mild Rash Verified 09/22/23 10:27 morphine Allergy Mild RASH Verified 09/22/23 10:27 Penicillins Allergy Mild Hives Verified 09/22/23 10:27 Review of Systems Review of Systems: CONSTITUTIONAL: Denies fever, chills, or sweats. EYES: Denies visual changes, redness, or discharge. ENT: Denies rhinorrhea, congestion, sore throat, or otalgia. CARDIOVASCULAR: Denies chest pain, palpitations, or edema. RESPIRATORY: Denies cough or dyspnea. GASTROINTESTINAL: reports upset stomach, nausea. Denies vomiting, or diarrhea. GENITOURINARY: Denies dysuria or hematuria. SKIN: Denies rash or itching. MUSCULOSKELETAL: Denies back pain, joint pain, or myalgia. reports pain to right hamstring. NEUROLOGIC: Denies headache, numbness, or weakness. PSYCHIATRIC: Denies anxiety or depression. All other systems reviewed are negative, except as documented in HPI. [facility] Past Medical History Medical History (Updated 09/22/23 @ 10:46 by Antonina Duran NP) Acquired thrombocytopenia Elevated cholesterol Encounter for wellness examination Fracture of 5th metatarsal GERD with esophagitis Hand laceration Head pain Hiatal hernia History of migraine Hx of adenomatous colonic polyps Hyperlipidemia Hypertension Leukocytosis Onychomycosis Otitis media Screening for lipid disorders Screening for thyroid disorder Screening PSA (prostate specific antigen) Upper back pain Surgical History Surgical History History of appendectomy History of cholecystectomy History of lumbar spinal fusion History of tonsillectomy and adenoidectomy Status post appendectomy Family History Family History Father Hypertension Cerebrovascular accident Grandparent Cerebrovascular accident Family history of lung cancer No family history of cerebrovascular accident (CVA) Mother No problems noted. Sibling No problems noted. Other Diabetes mellitus Social History Social History Smoking packs per day: 1.5 Smoking cigarettes per day: 30.0 Years smoked: 20 Smoking pack-years: 30.00 Smoking status: Former smoker Tobacco type: cigarettes Smoking end date: 05/24/89 Alcohol intake: never Alcohol use details: VERY RARELY Substance use: current Substance use type: marijuana Last use: 07/22/22 Lack of Transportation: No Lack of Food: Never True Current Housing: I Have Housing Concerned About Future Housing: No Difficulty Paying Gas/Electric Bills: No Difficulty Paying for Meds: No Currently Unemployed: No Education: Associate Degree Difficulty w/ Childcare or Family Care: No Living arrangements: with family Additional living arrangements comments: Occupation/Education: occupation Additional occupation/education comments: 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 Gender identity (if verbalized by the patien
== END 2023-09-22 10:56 | disposition home or self-care (01) ==
PROVIDERS: Emergency Provider Nurse Practitioner Family; PCP Family Medicine
DX: K30 Functional dyspepsia (principal); S76.311A Strain of muscle, fascia and tendon of the posterior muscle group at thigh level, right thigh, initial encounter; W01.0XXA Fall on same level from slipping, tripping and stumbling without subsequent striking against object, initial encounter; E78.00 Pure hypercholesterolemia, unspecified; K21.00 Gastro-esophageal reflux disease with esophagitis, without bleeding; E78.5 Hyperlipidemia, unspecified; I10 Essential (primary) hypertension; Z87.891 Personal history of nicotine dependence
CPT/HCPCS: 99212; G0463

== ENCOUNTER 2023-10-16 07:39 | Outpatient (CLI) | payer OTHER, SELFPAY ==
--- NOTE | ~2023-10-16 | XR_ITS ---
EXAMINATION: XR knee LT 3V DATE: 10/16/2023 09:03 INDICATION: Knee pain. TECHNIQUE: 3 views of left knee including standing views were obtained. COMPARISON: None. FINDINGS: Bone alignment is normal. No fracture. There is mild osteoarthritis of patellofemoral yoli rtment. No knee joint effusion. IMPRESSION: 1. Mild left knee osteoarthritis. Reviewed, dictated and finalized at location A.
--- NOTE | ~2023-10-16 | MR_ITS ---
MRI of the right femur Clinical history: Pain, muscle tear TECHNIQUE: Axial T1-weighted and STIR images, coronal T1-weighted and STIR images, and sagittal T1-we ighted and STIR images were acquired. FINDINGS: Visualized bone marrow signals are unremarkable. No fracture, bone marrow edema, or periost eal reaction. No evidence for osteomyelitis. There is edematous change with small focal fluid collection involving the semimembranosus muscle mortensen y, with small focal fluid collection measuring 1.3 x 0.5 x 2.0 cm in extent. Remaining musculature is intact. Visualized tendons are intact. Soft tissues are unremarkable otherwise. No other soft tissue mass or fluid collection seen. IMPRESSION: Findings compatible with focal grade 2 injury of the semitendinosus muscle belly, with a small 1.3 x 0.5 x 2.0 cm intramuscular fluid collection with surrounding edema. Reviewed, dictated and finalized at [facility]. IMPRESSION: Findings compatible with focal grade 2 injury of the semitendinosus muscle mortensen y, with a small 1.3 x 0.5 x 2.0 cm intramuscular fluid collection with surround ing edema.
--- NOTE | ~2023-10-16 | XR_ITS ---
EXAMINATION: XR knee RT 3V DATE: 10/16/2023 09:03 INDICATION: Right knee pain. TECHNIQUE: 3 views of right knee were obtained. COMPARISON: None. FINDINGS: Bone alignment is normal. No fracture. There is mild osteoarthritis of patellofemoral yoli rtment. No knee joint effusion. IMPRESSION: 1. Mild right knee osteoarthritis. Reviewed, dictated and finalized at location A.
== END 2023-10-16 07:40 ==
LOC: MICIMG 07:41
PROVIDERS: PCP Physician Assistant; Visit Provider Physician Assistant
DX: M17.0 Bilateral primary osteoarthritis of knee (principal); M62.89 Other specified disorders of muscle
CPT/HCPCS: 73562; 73718

== ENCOUNTER 2024-01-25 14:53 | Outpatient (CLI) | payer OTHER, SELFPAY ==
--- NOTE | 2024-01-25 14:56 | ECG_ITS ---
Test Date: 2024-01-25 15:32:40 Measurements Intervals [place] Rate: 62 P: 58 [place]: 162 QRS: 14 QRSD: 97 T: 37 QT: 381 QTc: 389 Interpretive Statements SINUS RHYTHM BASELINE ARTIFACT- I, II, III, AVR, AVL NORMAL ECG No previous ECG available for comparison Electronically Signed On 01-25-2024 15:33:58 CDT by Navneet Roman D.O.
== END 2024-01-25 14:54 | disposition home or self-care (01) ==
PROVIDERS: PCP Family Medicine; Visit Provider Surgery
DX: K40.20 Bilateral inguinal hernia, without obstruction or gangrene, not specified as recurrent (principal); I10 Essential (primary) hypertension; Z01.818 Encounter for other preprocedural examination
CPT/HCPCS: 36415; 86850; 86900; 86901; 93005

== ENCOUNTER 2024-01-27 03:05 | Day surgery (SDC) | payer OTHER, SELFPAY ==
[2024-01-21 10:19] VITALS: BMI 25.7
--- NOTE | 2024-01-21 10:26 | PC.NURSE ---
Report to the Outpatient Waiting Room, entrance under the green pavilion located off [facility], at time 1000__ on date 01/27/24_. Planned Procedure Time: _1200.? Time changes happen often and if your time is changed the preop area will call you the afternoon before. - You and your visitor will be asked to self-screen and do not enter if you have any COVID symptoms. Please call surgeon if you need to reschedule. - A mask is optional within the hospital at this time. Patients may have clear liquids (water, carbonated beverages, clear teas, apple juice) until 3 hours prior to surgery with a maximum of 20 ounces. - No food from midnight until time of surgery and no smoking - Infants may have breast milk until 4 hours before surgery, formula 6 hours prior to surgery. - Children will be allowed to drink immediately following surgery.? If applicable, please bring a bottle or sippy cup to assist with drinking. Juice, water, soda, and popsicles are readily available.? For infants on formula, please bring formula the day of surgery.? Pacifiers are allowed. Take only the following medications with a SIP of water on the morning of surgery: __PROPANOLOL, DULOXETINE DO NOT STOP ANY OF YOUR OTHER PRESCRIPTION MEDICATIONS PRIOR TO SURGERY EXCEPT THE FOLLOWING Medications to discontinue per physician NONE Date to take last dose Please no make-up, nail welsh, hairspray, perfume, deodorant, or body powder the day of surgery.? No jewelry (including any body piercings) or valuables the day of surgery, leave them at home.? Please take a shower or bath the night before, or the morning of, surgery with HIBICLENS antibacterial soap.? Wear comfortable, loose fitting clothing.? Children are encouraged to wear pajamas. - Jewelry must be removed prior to entering the operating room.? Rings and piercings that are not removed may be cut off. - The hospital will not accept responsibility for valuables.? - Please leave all valuables, including medications, at home the day of surgery. If you are going home after surgery, a licensed subway train driver must drive you home.? - NO public transportation without another adult if you receive anesthesia. - We recommend that an adult stay with you for 24 hours following discharge. - We also recommend that you do not drive, make important decision, drink alcoholic beverages, or take any drugs that were not prescribed by your health care provider for at least 24 hours after your discharge time. For Pediatric surgeries, we recommend two adults accompany the child home. Follow any additional instructions given to you from your surgeon. Telephone instructions given to ___PATIENT_and asked if any additional questions and then verbalized understanding. Patient advised to call surgeon office or pre surgery nurse liaison [phone] if any additional questions.
[2024-01-27] VITALS (9 sets, daily range): BP systolic 114–154; BP diastolic 67–96; PULSE 44–67; RESP 10–16; TEMP 36.6–36.7; O2SAT 95–99
[2024-01-27] MEDS: LACTATED RINGERS 1,000 ML 30 ML IV CONT ×2 (11:00→13:33)
[2024-01-27] MEDS: KETOROLAC 15 MG/ML VIAL (*BKC) IV PUSH (11:09)
[2024-01-27] MEDS: ACETAMINOPHEN 500 MG TABLET 1000 MG PO (11:09)
--- NOTE | 2024-01-27 11:47 | WPDANESEPPF ---
Anes - Initial Pre Proc Eval Procedure: Operation Date: 01/27/24 12:00 Proposed Procedures p Robotic Assisted Laparoscopic Bilateral Inguinal Hernia Repair with Mesh - Rosemary Carr MD Date/Time: 01/27/24 11:47 Surgeon: Rosemary Carr MD Pre Op Diagnosis: bilat inguinal hernia Patient Data Age: 63 Gender: M Height: 1.83 m Weight: 85.1 kg Last Vital Signs Temp 36.6 C 01/27/24 11:10 Pulse 65 01/27/24 11:10 Resp 16 01/27/24 11:10 BP 114/67 01/27/24 11:10 Pulse Ox 97 01/27/24 11:10 O2 Del Method Room Air 01/27/24 11:10 Allergies Allergy/AdvReac Type Severity Reaction Status Date / Time cefdinir Allergy Mild Rash Verified 01/27/24 11:07 morphine Allergy Mild RASH Verified 01/27/24 11:07 Penicillins Allergy Mild Hives Verified 01/27/24 11:07 Home Medications Medication Instructions Recorded Confirmed Type propranolol 60 mg capsule,24 60 mg PO DAILY #90 caps 02/15/23 01/27/24 Rx hr,extended release budesonide 3 mg See Rx Instructions .Route 07/29/23 01/21/24 Rx capsule,delayed,extended release .COMPLEX #180 caps omeprazole 40 mg capsule,delayed See Rx Instructions .Route 08/01/23 01/21/24 Rx release .COMPLEX #90 caps trazodone 50 mg tablet 50 mg PO HS #90 tabs 10/12/23 01/21/24 Rx terbinafine HCl 250 mg tablet 250 mg PO DAILY #30 tabs 11/29/23 01/21/24 Rx clorazepate dipotassium 7.5 mg 7.5 mg PO QID PRN anxiety #120 tabs 01/05/24 01/21/24 Rx tablet duloxetine 60 mg capsule,delayed 60 mg PO DAILY #30 caps 01/07/24 01/27/24 Rx release Patient hx anesthesia problems: none Family hx anesthesia problems: none Results Review: All pre-operative results and documents have been reviewed as part of the pre-operative evaluation. [facility] Past Medical History Medical History Abdominal hernia Acquired thrombocytopenia Elevated cholesterol Encounter for wellness examination Fracture of 5th metatarsal GERD with esophagitis Hand laceration Head pain Hiatal hernia History of migraine Hx of adenomatous colonic polyps Hyperlipidemia Hypertension Leukocytosis Onychomycosis Otitis media Screening for lipid disorders Screening for thyroid disorder Screening PSA (prostate specific antigen) Upper back pain Surgical History Surgical History History of appendectomy History of cholecystectomy History of lumbar spinal fusion History of tonsillectomy and adenoidectomy Status post appendectomy Family History Family History Father Hypertension Cerebrovascular accident Grandparent Cerebrovascular accident Family history of lung cancer No family history of cerebrovascular accident (CVA) Mother No problems noted. Sibling No problems noted. Other Diabetes mellitus Social History Social History Smoking packs per day: 1.5 Smoking cigarettes per day: 30.0 Years smoked: 20 Smoking pack-years: 30.00 Smoking status: Former smoker Tobacco type: cigarettes Smoking end date: 05/24/89 Additional smoking assessment comments: QUIT- 1997 Alcohol intake: current Alcohol use details: 2-3 TIMES PER YR Substance use: current Substance use type: marijuana Other substance usage details: EVERY OTHER DAY Last use: 07/22/22 Do You Feel Safe in your Home?: Yes Lack of Transportation: No Lack of Food: Never True Current Housing: I Have Housing Concerned About Future Housing: No Difficulty Paying Gas/Electric Bills: No Difficulty Paying for Meds: No Currently Unemployed: No Education: Associate Degree Difficulty w/ Childcare or Family Care: No Living arrangements: with family Additional living arrangements comments: Occupation/Education: occupation Additional occupation/education co
--- NOTE | 2024-01-27 11:55 | WPDHPUPDATE1 ---
History and Physical Update Update Date/Time: 01/27/24 11:55 History and Physical has been reviewed, including an updated exam of the patient. There are NO changes in the patient's condition. Risks, benefits, and alternatives have been discussed and questions answered. Patient agrees to proceed with procedure.
[2024-01-27] MEDS: ceFAZolin 2 GM/D5W 50 ML 2 GM/50 ML BAG IVPB (12:02)
[2024-01-27] MEDS: BUPIVACAINE/EPINEPHRINE 0.5% 50 ML VIAL 30 ML INFILTRATE (12:36)
--- NOTE | 2024-01-27 13:34 | W.PM.PROC2 ---
Procedure Note - Detailed Date of Procedure 01/27/24 Pre-op Diagnosis bilateral inguinal hernia Post-op Diagnosis Same Procedure Performed robotic assisted bilateral inguinal hernia repair with mesh Surgeon Rosemary Carr MD Anesthesia General Indications Pt is a 63 y/o M presenting c few mo h/o bulging, discomfort in R groin. Pt reports recently pain in L groin as well, but no bulging noted Findings Bilateral indirect hernia left greater than right Description of Procedure Patient was brought into the operating room and placed in the supine position. After adequate induction of general anesthesia, the patient was prepped and draped in normal sterile fashion. A time-out was then done to verify the patient's identity, as well as the procedure being performed. I began by making a 8 mm incision in the supraumbilical region, a Veress needle was then placed into the peritoneal cavity. CO2 gas was then insufflated and after adequate pneumoperitoneum was achieved, the Veress needle was removed. I then placed an 8 mm trocar through this incision. I then placed the endoscope through this trocar site and under direct visualization placed 2 further 8 mm ports in the right and left mid abdomen. The [employer] robot was then docked to the 3 trocar sites. I then scrubbed out and went to the robotic console. Upon examining the pelvis, it was noted that the patient had a small sized right inguinal hernia. The left side was examined and a moderate sized hernia defect was noted. I began by making a preperitoneal flap approximately 6 cm superior to the right sided defect. This flap was carried medially past the umbilical ligaments and laterally to the transversalis. It then began dissection of my medial compartment taking this down to the pubic tubercle. I then began the lateral dissection taking this down to the transversalis fascia. Once these compartments were achieved, I began dissection around the cord structures. A small indirect hernia was noted at this point. Using careful dissection, was able to reduce indirect hernia sac off the cord structures. Once this was adequately done, I went ahead and placed a large piece of 3D Max mesh into the abdominal cavity. The mesh was carefully positioned, centering the center of the mesh over the indirect defect. Once this was done, was very satisfied with our repair. Using 3-0 Vicryl sutures, I tacked the mesh medially to Cheko's ligament. Two lateral sutures were placed from the mesh to the transversalis fascia. I then began on the left side by making a preperitoneal flap approximately 6 cm superior to the left sided defect. This flap was carried medially past the umbilical ligaments and laterally to the transversalis. It then began dissection of my medial compartment taking this down to the pubic tubercle. I then began the lateral dissection taking this down to the transversalis fascia. Once these compartments were achieved, I began dissection around the cord structures. A moderate indirect hernia was noted at this point. Using careful dissection, was able to reduce indirect hernia sac off the cord structures. Once this was adequately done, I went ahead and placed a large piece of 3D Max mesh into the abdominal cavity. The mesh was carefully positioned, centering the center of the mesh over the indirect defect. Once this was done, was very satisfied with our repair. Using 3-0 Vicryl sutures, I tacked the mesh medially to Cheko's ligament. Two lateral sutures were placed from the mesh to the transversalis fascia.I then closed the peritoneal flap bilaterally with running 2.0 V Lock suture x 2. The abdomen was then desufflated, and all ports were removed. All incisions were then closed with the 4.0 monocryl suture. Dermabond was placed on each wound. The patient tolerated the procedure well, was extubated in the operating room postoperatively, and will now be transferred to the recovery room in stable condition.
[2024-01-27] MEDS: oxyCODONE HCL (*CRX) 5 MG TAB IR PO (14:42)
== END 2024-01-27 15:30 | disposition home or self-care (01) ==
PROVIDERS: PCP Family Medicine; Visit Provider Surgery
PROC: 8E0Y4CZ Robotic Assisted Procedure of Lower Extremity, Percutaneous Endoscopic Approach (ICD-10-PCS; CPT 49650; principal; 2024-01-27 12:00)
DX: K40.20 Bilateral inguinal hernia, without obstruction or gangrene, not specified as recurrent (principal); I10 Essential (primary) hypertension; E78.00 Pure hypercholesterolemia, unspecified; K21.9 Gastro-esophageal reflux disease without esophagitis; Z98.1 Arthrodesis status; Z87.891 Personal history of nicotine dependence; F12.90 Cannabis use, unspecified, uncomplicated
CPT/HCPCS: 49650; S2900; 36415; 86850; 86900; 86901; 93005; A9270; C1781; J0690; J1100; J1885; J2250; J2405; J2704; J3010; J7030; J7120

== ENCOUNTER 2024-03-09 14:04 | Emergency (ER) | payer OTHER, SELFPAY ==
--- NOTE | ~2024-03-09 | XR_ITS ---
EXAMINATION: XR shoulder LT min 2V DATE: 03/09/2024 14:42 INDICATION: Left shoulder injury and pain. TECHNIQUE: 3 views of left shoulder were obtained. COMPARISON: None. FINDINGS: Alignment is normal. No fracture. There is severe osteoarthritis of acromioclavicular joint . Glenohumeral joint is normal. IMPRESSION: 1. Severe acromioclavicular joint osteoarthritis. Reviewed, dictated and finalized at location A.
[2024-03-09 14:16] VITALS: BP 111/74; PULSE 71; RESP 15; TEMP 36.5; O2SAT 98
[2024-03-09 14:19] VITALS: BP 111/74; PULSE 71; RESP 15; TEMP 36.5; O2SAT 98
--- NOTE | 2024-03-09 14:34 | ED.UPPEXIN ---
HPI - Extremity Injury (Upper) General Chief Complaint: Extremity Injury, Upper Stated Complaint: lt shoulder injury Time Seen by Provider: 03/09/24 14:25 Source: patient, RN notes reviewed and old records reviewed Mode of arrival: ambulatory Limitations: no limitations History of Present Illness HPI narrative: 63 year old male presents to express care with complaints of pain to left shoulder with increased pain with movement of left arm with some limitation in mobility noted. Patient reports that 4 weeks ago her reached up to close a duran on a vehicle at work and had sharping burning pain to his left shoulder. Patient reports that shoulder pain progressively has worsened. He has used ice and topical ointments to his left shoulder and Ibuprofen and also some left over Vicodin with no pain relief. Patient has extreme pain with extension and MD complaint: injury to: left and shoulder Onset (ago): week(s) (4 weeks with increasing pain) Severity scale (1-10): 8 Treatments prior to arrival: cold therapy, NSAIDS and other (topical pain medication and has taken some left over Vicodin) Related Data Home Medications Medication Instructions Recorded Confirmed clorazepate dipotassium 7.5 mg 7.5 mg PO QID anxiety 03/09/24 03/09/24 tablet Allergies Allergy/AdvReac Type Severity Reaction Status Date / Time cefdinir Allergy Mild Rash Verified 03/09/24 14:18 morphine Allergy Mild RASH Verified 03/09/24 14:18 Penicillins Allergy Mild Hives Verified 03/09/24 14:18 Review of Systems Review of Systems: CONSTITUTIONAL: Denies fever, chills, or sweats. EYES: Denies visual changes, redness, or discharge. ENT: Denies rhinorrhea, congestion, sore throat, or otalgia. CARDIOVASCULAR: Denies chest pain, palpitations, or edema. RESPIRATORY: Denies cough or dyspnea. GASTROINTESTINAL: Denies abdominal pain, nausea, vomiting, or diarrhea. GENITOURINARY: Denies dysuria or hematuria. SKIN: Denies rash or itching. MUSCULOSKELETAL: Denies back pain, positive for pain to left shoulder decreased ROM due to pain, or myalgia. NEUROLOGIC: Denies headache, numbness, or weakness. PSYCHIATRIC: Denies anxiety or depression. All systems reviewed & are unremarkable except as noted in HPI and below PMFSH Past Medical History Medical History (Updated 03/10/24 @ 00:02 by Background Daemon) Abdominal hernia Acquired thrombocytopenia Elevated cholesterol Encounter for wellness examination Fracture of 5th metatarsal GERD with esophagitis Hand laceration Head pain Hiatal hernia History of migraine Hx of adenomatous colonic polyps Hyperlipidemia Hypertension Leukocytosis Onychomycosis Otitis media Screening for lipid disorders Screening for thyroid disorder Screening PSA (prostate specific antigen) Upper back pain Surgical History Surgical History (Updated 02/09/24 @ 09:34 by Adali Manzano) History of appendectomy History of bilateral inguinal hernia repair 01/27/2024 - robotic assisted bilateral inguinal hernia repair with mesh History of cholecystectomy History of lumbar spinal fusion History of tonsillectomy and adenoidectomy Status post appendectomy Family History Family History Father Hypertension Cerebrovascular accident Grandparent Cerebrovascular accident Family history of lung cancer No family history of cerebrovascular accident (CVA) Mother No problems noted. Sibling No problems noted. Other Diabetes mellitus Social History Social History Smoking packs per day: 1.5 Smoking cigarettes per day: 30.0 Years smoked: 20 Smoking pack-years: 30.00 Smoking status: Former smoker Tobacco type: cigarettes Smoking end date: 05/24/89 Additional smoking assessment comments: QUIT- 1997 Alcohol intake: current Alcohol use details: 2-3 TIMES PER YR Substance use: current Scott
== END 2024-03-09 15:31 | disposition home or self-care (01) ==
PROVIDERS: Emergency Provider Registered Nurse; PCP Family Medicine
DX: M25.512 Pain in left shoulder (principal); E78.00 Pure hypercholesterolemia, unspecified; K21.00 Gastro-esophageal reflux disease with esophagitis, without bleeding; E78.5 Hyperlipidemia, unspecified; I10 Essential (primary) hypertension; Z87.891 Personal history of nicotine dependence
CPT/HCPCS: 73030; 99213; G0463

== ENCOUNTER 2024-04-28 09:55 | Outpatient (CLI) | payer OTHER, SELFPAY ==
--- NOTE | ~2024-04-28 | MR_ITS ---
MRI of the left shoulder Technique: Axial proton-density fat-sat images, coronal proton density fat-sat and T2 fat-sat images, and sagittal T1-weighted and T2 fat-sat images were acquired. Clinical History: Pain Findings: There is moderate to advanced AC joint degenerative change, with subacromial spur present. Coracoclavicular, coracoacromial, and coracohumeral ligaments are intact. Supraspinatus and infraspinatus tendons are intact, without partial or full-thickness tear. Subscapul regina tendon is intact. Tendon of long head of the biceps is intact. There is probable superior labral tear extending to the anterosuperior and posterior superior portion s. Inferior glenohumeral ligament is intact. There is moderate chondromalacia the humeral head. No joint effusion. No fluid distention of the subacromial/subdeltoid bursa. No muscle atrophy or edema. Impression: Probable degenerative SLAP tear of the labrum. Rotator cuff is intact. Moderate to advanced AC joint degenerative change. Reviewed, dictated and finalized at [facility]. F VETERINARIAN Impression: Probable degenerative SLAP tear of the labrum. Rotator cuff is intact. Moderate to advanced AC joint degenerative change.
== END 2024-04-28 09:56 | disposition home or self-care (01) ==
PROVIDERS: PCP Family Medicine; Visit Provider Nurse Practitioner Family
DX: M19.012 Primary osteoarthritis, left shoulder (principal)
CPT/HCPCS: 73221

== ENCOUNTER 2024-07-11 13:21 | Outpatient (CLI) | payer OTHER, SELFPAY ==
--- OUTSIDE RECORDS SUMMARY | 2024-07-11 13:26 | XMS_ITS | Clinical Summary ---
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 Gender Identity Not on file Sexual Orientation Not on file Plan of Treatment Health Maintenance Due Date Last Done Comments Hepatitis C Virus (HCV) Screening 1960 TdaP Immunization 1960 Colonoscopy 11/24/2004 Colorectal Cancer Screening 11/24/2004 Cologuard 11/24/2009 Immunochemical Fecal Occult Blood 11/24/2009 Pneumococcal Immunization (5 0+ years) (1 of 1 - PCV) 11/24/2009 Zoster Immunization (1 of 2) 11/24/2009 PSA Discussion 11/24/2014 Influenza Immunization (#1) 01/23/202402/22, 03/01/2018, 03/24/2015 SARS-COV-2 Immunization ( season) 2024 05/10/2021, 09/25/2020, 09/04/2020 Respiratory Syncytial Virus (RSV) Immunization (Adult) (1 - 1-dose 75+ series) 11/24/2034 Hepatitis B Immunization Aged Out No longer eligible based on patient's age to complete this topic Meningococcal Immunization (ACWY) Aged Out No longer eligible b ased on patient's age to complete this topic Pneumococcal Immunization Combined Aged Out No longer eligible b ased on patient's age to complete this topic Rotavirus Immunization Aged Out No lo nger eligible based on patient's age to complete this topic
--- NOTE | 2024-07-11 14:30 | NEURO_ITS ---
Impression: # Complains of left upper extremity discomfort. ? # Normal Nerve Conduction Study. ? # No Carpal Tunnel Syndrome or ulnar neuropathy. ? # Normal needle/EMG exam proximally and distally. ? # Clinical correlation recommended. Nerve Conduction Studies Anti Sensory Summary Table ?Stim Site NR Peak (ms) P-T Amp (?V) Site1 Site2 Delta-P (ms) Dist (cm) Yusuf (m/s) Left Median Anti Sensory (2-3nd Digit) Wrist ? 3.6 23.0 Wrist 2-3nd Digit 3.6 14.0 39 Wrist ? 3.3 39.8 Wrist 2-3nd Digit 3.6 14.0 39 Left Radial Anti Sensory (Base 1st Digit) Wrist ? 2.3 14.7 Wrist Base 1st Digit 2.3 0.0 Left Ulnar Anti Sensory (5th Digit) Wrist ? 2.8 52.2 Wrist 5th Digit 2.8 14.0 50 Motor Summary Table ?Stim Site NR Onset (ms) O-P Amp (mV) Site1 Site2 Delta-0 (ms) Dist (cm) Yusuf (m/s) Left Median Motor (Abd Poll Brev) Wrist ? 3.0 4.0 Elbow Wrist 5.8 33.0 57 Elbow ? 8.8 5.1 Left Ulnar Motor (Abd Dig Minimi) Wrist ? 2.6 5.3 A Elbow Wrist 5.8 32.0 55 A Elbow ? 8.4 4.5 F Wave Studies ?NR F-Lat (ms) L-R F-Lat (ms) Left Median (Mrkrs) (Abd Poll Brev) ? 30.06 Left Ulnar (Mrkrs) (Abd Dig Min) ? 29.94 EMG ?Side Muscle Nerve Root Ins Act Fibs Amp Dur Recrt Comment Left 1stDorInt Ulnar C8-T1 Nml Nml Nml Nml Nml Left Ext Indicis Radial (Post Int) C7-8 Nml Nml Nml Nml Nml Left Ext Digitorum Radial (Post Int) C7-8 Nml Nml Nml Nml Nml Left BrachioRad Radial C5-6 Nml Nml Nml Nml Nml Left PronatorTeres Median C6-7 Nml Nml Nml Nml Nml Left Abd Poll Brev Median C8-T1 Nml Nml Nml Nml Nml Left ABD Dig Min Ulnar C8-T1 Nml Nml Nml Nml Nml Left Biceps Musculocut C5-6 Nml Nml Nml Nml Nml Left Triceps Radial C6-7-8 Nml Nml Nml Nml Nml Left Deltoid Axillary C5-6 Nml Nml Nml Nml Nml MTDD
== END 2024-07-11 13:22 | disposition home or self-care (01) ==
LOC: ANHNEURO 13:23
PROVIDERS: PCP Family Medicine; Visit Provider Nurse Practitioner Family
DX: G56.02 Carpal tunnel syndrome, left upper limb (principal)
CPT/HCPCS: 95886; 95909

== ENCOUNTER 2024-12-22 16:31 | Emergency (ER) | payer OTHER, SELFPAY ==
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
--- OUTSIDE RECORDS SUMMARY | 2024-12-22 16:33 | XMS_ITS | Clinical Summary ---
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 Gender Identity Not on file Sexual Orientation Not on file Plan of Treatment Health Maintenance Due Date Last Done Comments Hepatitis C Virus (HCV) Screening 1960 TdaP Immunization 1960 Cologuard 11/24/2004 Colonoscopy 11/24/2004 Colorectal Cancer Screening 11/24/2004 Immunochemical Fecal Occult Blood 11/24/2004 Pneumococcal Immunization (50+ years) (1 of 1 - PCV) 11/24/2009 Zoster Immunization (1 of 2) 11/24/2009 SARS-COV-2 Immunization ( season) 2024 05/10/2021, 09/25/2020, 09/04/2020 Influenza Immunization (#1) 01/22/202501/22, 03/14/2020, 03/01/2018, Additional history exists Respiratory Syncytial Virus (RSV) Immunization (Adult) (1 - 1-dose 75+ series) 11/24/2034 Hepatitis B Immunization Aged Out No longer eligible based on patient's age to complete this topic Human Papillomavirus (HPV) Immunization Aged Out No longer eligible based on patient's age to complete this topic Meningococcal Immunization (ACWY) Aged Out No longer eligible based on patient's age to complete this topic Rotavirus Immunization Aged Out No lo nger eligible based on patient's age to complete this topic
--- NOTE | 2024-12-22 16:36 | ECG_ITS ---
Test Date: 2024-12-22 16:48:38 Measurements Intervals [place] Rate: 66 P: 61 DC: 167 QRS: 9 QRSD: 96 T: 42 QT: 364 QTc: 384 Interpretive Statements SINUS RHYTHM INCOMPLETE RIGHT BUNDLE BRANCH BLOCK BASELINE ARTIFACT- I, II, III, AVL, AVF, V1-V2, V6 BORDERLINE ECG Compared to ECG 01/25/2024 15:32:40 No significant changes Electronically Signed On 12-22-2024 19:16:23 CDT by Navneet Roman D.O.
[2024-12-22 16:43] VITALS: BP 139/92; PULSE 66; RESP 15; TEMP 37; O2SAT 99
[2024-12-22 16:54] LABS: Hematocrit 44.8 % (42.0-52.0); Hemoglobin 15.0 g/dL (14.0-18.0); Immature Granulocyte Percent A 0.3 % (0-0.5); Lymphocytes Absolute Auto 1.17 K/mm3 (0.9-3.2); Mean Corpuscular HGB Conc 33.5 g/dl (32-36); Mean Corpuscular Hemoglobin 31.5 pg (26-34); Mean Corpuscular Volume 94.1 fl (80-100); Nucleated Red Blood Cells Absolute Auto 0.000 K/mm3 (0.0-0.012); Nucleated Red Blood Cells Perc 0.0 % (0.0-0.2); Platelet Count Result 147 k/mm3 (150-375); Red Blood Count 4.76 M/mm3 (4.6-6.20); White Blood Count 9.0 K/mm3 (4.5-10.0)
--- NOTE | 2024-12-22 17:06 | PC.NURSE ---
Pt to CT at this time.
[2024-12-22 17:11] LABS: Alanine Aminotransferase 16 U/L (6-50); Albumin Level 4.4 g/dL (3.5-5.1); Alkaline Phosphatase 65 U/L (38-126); Anion Gap 9 mmol/L (4-12); Aspartate Amino Transferase 27 U/L (17-59); Bilirubin,Total 0.6 mg/dL (0.2-1.3); Blood Urea Nitrogen 12 mg/dL (9-20); Calcium 9.4 mg/dL (8.4-10.2); Carbon Dioxide 24 mmol/L (22-30); Chloride 104 mmol/L (98-107); Creatine Kinase 72 U/L (55-170); Estimated CRCL calculation 55 ml/min; Estimated Glomerular Filt Rate 59; Glucose 110 mg/dL (65-110); Magnesium 1.9 mg/dL (1.6-2.3); Potassium 3.6 mmol/L (3.4-5.0); Sodium 137 mmol/L (137-145); Total Protein 7.3 g/dL (6.3-8.2)
--- OUTSIDE RECORDS SUMMARY | 2024-12-22 17:43 | XMS_ITS | Clinical Summary ---
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
[2024-12-22 18:46] LABS: Cannabinoid Screen Urine Positive (Negative)
== END 2024-12-22 20:24 | disposition home or self-care (01) ==
PROVIDERS: Emergency Provider Student in an Organized Health Care Education/Training Program; PCP Family Medicine
DX: S06.0X0A Concussion without loss of consciousness, initial encounter (principal); I10 Essential (primary) hypertension; E78.5 Hyperlipidemia, unspecified; K21.00 Gastro-esophageal reflux disease with esophagitis, without bleeding; K44.9 Diaphragmatic hernia without obstruction or gangrene; Z98.1 Arthrodesis status; Z86.0101 Personal history of adenomatous and serrated colon polyps; Z87.891 Personal history of nicotine dependence; Z90.49 Acquired absence of other specified parts of digestive tract; I45.10 Unspecified right bundle-branch block; V43.52XA Car driver injured in collision with other type car in traffic accident, initial encounter
CPT/HCPCS: 36415; 70450; 71045; 72125; 73030; 80053; 80307; 82077; 82550; 83735; 85025; 93005; 99284

== ENCOUNTER 2025-05-04 12:58 | Outpatient (CLI) | payer OTHER, SELFPAY ==
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
== END 2025-05-04 12:59 | disposition home or self-care (01) ==
LOC: MICIMG 12:59
PROVIDERS: PCP Family Medicine; Visit Provider Orthopaedic Surgery
DX: R51.9 Headache, unspecified (principal); M19.012 Primary osteoarthritis, left shoulder; M50.30 Other cervical disc degeneration, unspecified cervical region
CPT/HCPCS: 70551; 72141; 73221